=== PATIENT | male | born 1960 | race Caucasian/White ===

== ENCOUNTER 2017-11-17 08:33 | Emergency (ER) | payer OTHER ==
[2017-11-17] MEDS: DEXTROSE 5%-0.45% NACL 500 ML IV (09:30)
[2017-11-17 10:22] LABS: ANION GAP 13 (8-16); BLOOD UREA NITROGEN 41 mg/dl (7-20); CALCIUM 9.5 mg/dl (8.4-10.2); CARBON DIOXIDE 27 mmol/L (21-31); CHLORIDE 102 mmol/L (97-110); GLUCOSE 95 mg/dl (70-220); POTASSIUM 4.2 mmol/L (3.5-5.1); SODIUM 138 mmol/L (135-144)
[2017-11-17 10:28] LABS: INR 0.87; PROTIME 11.9 Sec (11.9-14.9); PT RATIO 0.9
[2017-11-17 10:29] LABS: PARTIAL THROMBOPLASTIN TIME 33.9 Sec (25.0-35.0)
[2017-11-17] MEDS: HEPARIN 1000 UNITS/ML 10 ML INJ (13:41)
[2017-11-17] MEDS: LIDOCAINE 1% (MDV) 20 ML INJ (13:42)
== END 2017-11-17 16:25 | disposition home or self-care (01) ==
LOC: E/R 08:33
DX: T82.41XA Breakdown (mechanical) of vascular dialysis catheter, initial encounter (principal); I10 Essential (primary) hypertension; J44.9 Chronic obstructive pulmonary disease, unspecified; F17.210 Nicotine dependence, cigarettes, uncomplicated; I25.10 Atherosclerotic heart disease of native coronary artery without angina pectoris; E11.9 Type 2 diabetes mellitus without complications; Y62 Failure of sterile precautions during surgical and medical care; Z79.82 Long term (current) use of aspirin; Z79.4 Long term (current) use of insulin
CPT/HCPCS: 36581; 71045; 80048; 85610; 85730; 99284-25

== ENCOUNTER 2017-11-17 18:56 | Emergency (ER) | payer OTHER ==
[2017-11-17] MEDS: LIDOCAINE 1%/EPI 30 ML INJ INJ (20:36)
== END 2017-11-17 21:00 | disposition left against medical advice (07) ==
LOC: E/R 18:56
DX: T82.838A Hemorrhage due to vascular prosthetic devices, implants and grafts, initial encounter (principal); J44.9 Chronic obstructive pulmonary disease, unspecified; I25.10 Atherosclerotic heart disease of native coronary artery without angina pectoris; I10 Essential (primary) hypertension; F17.210 Nicotine dependence, cigarettes, uncomplicated; Y82.8 Other medical devices associated with adverse incidents; Z95.1 Presence of aortocoronary bypass graft; Z79.4 Long term (current) use of insulin; Z79.01 Long term (current) use of anticoagulants; Z79.82 Long term (current) use of aspirin
CPT/HCPCS: 99282; Z7502

== ENCOUNTER 2018-04-20 04:20 | Emergency (ER) | payer SELFPAY, OTHER | END 2018-04-20 05:09 | disposition left against medical advice (07) | LOC: E/R 04:20 | DX: Z53.21 Procedure and treatment not carried out due to patient leaving prior to being seen by health care provider (principal) ==

== ENCOUNTER 2018-12-13 06:02 | Inpatient (IN) | payer OTHER ==
[2018-12-13 06:32] LABS: ADD MAN DIFF? NO
[2018-12-13] MEDS: DEXTROSE 5%-0.45% NACL 500 ML IV ×2 (06:36→10:30)
[2018-12-13] MEDS: CEFEPIME 2GM/50 ML (PMX) 50 ML IVPB (06:36)
[2018-12-13] MEDS: SODIUM CHLORIDE 0.9% 1L BAG IV* (06:36)
[2018-12-13 06:38] LABS: WHITE BLOOD COUNT 25.3 10^3/ul (4.8-10.8)
[2018-12-13 06:38] LABS: ABNORMAL IP MESSAGE 1; BASOPHIL # 0.1 10^3/ul (0.0-0.1); BASOPHILS % 0.4 % (0.0-2.0); HEMATOCRIT 33.5 % (42.0-52.0); HEMOGLOBIN 10.9 g/dl (14.0-18.0); LYMPHOCYTES # 0.4 10^3/ul (0.8-2.9); LYMPHOCYTES % 1.7 % (15.0-51.0); MEAN CORPUSCULAR HEMOGLOBIN 32.9 pg (29.0-33.0); MEAN CORPUSCULAR HGB CONC 32.5 g/dl (32.0-37.0); MEAN CORPUSCULAR VOLUME 101.2 fl (82.0-101.0); MEAN PLATELET VOLUME 11.4 fl (7.4-10.4); MONOCYTE # 0.7 10^3/ul (0.3-0.9); MONOCYTES % 2.9 % (0.0-11.0); NEUTROPHIL # 23.3 10^3/ul (1.6-7.5); NUCLEATED RED BLOOD CELLS # 0.2 10^3/ul (0.0-0.0); NUCLEATED RED BLOOD CELLS% 0.8 /100WBC (0.0-0.0); PLATELET COUNT 211 10^3/UL (140-415); POSITIVE DIFF @See below; RED BLOOD COUNT 3.31 10^6/ul (4.70-6.10); RED CELL DISTRIBUTION WIDTH 15.6 % (11.5-14.5)
[2018-12-13] MEDS: LIDOCAINE 1% (MPF) 5 ML VIAL SC (06:47)
[2018-12-13 06:48] LABS: ADD UMIC YES; UR ASCORBIC ACID NEGATIVE (NEGATIVE); UR BACTERIA FEW /HPF (NONE SEEN); UR BILIRUBIN (Dip) NEGATIVE (NEGATIVE); UR BLOOD (Dip) 2+ mg/dL (NEGATIVE); UR CLARITY CLOUDY (CLEAR); UR COLOR AMBER (YELLOW); UR GLUCOSE (Dip) 1+ mg/dL (NEGATIVE); UR KETONES (Dip) TRACE mg/dL (NEGATIVE); UR LEUKOCYTE ESTERASE (Dip) TRACE Leu/ul (NEGATIVE); UR NITRITE (Dip) NEGATIVE (NEGATIVE); UR RBC 60 /HPF (0-5); UR SPECIFIC GRAVITY (Dip) 1.024 (1.003-1.030); UR TOTAL PROTEIN (Dip) 1+ mg/dl (NEGATIVE); UR UROBILINOGEN (Dip) NEGATIVE (NEGATIVE); UR WBC 16 /HPF (0-5)
[2018-12-13 06:53] LABS: ALANINE AMINOTRANSFERASE 26 IU/L (13-69); ALBUMIN 3.4 g/dl (3.3-4.9); ALBUMIN/GLOBULIN RATIO 0.73; ALKALINE PHOSPHATASE 1500 IU/L (42-121); ANION GAP 18 (5-13); ASPARTATE AMINO TRANSFERASE 54 IU/L (15-46); BILIRUBIN,INDIRECT 0.1 mg/dl (0-1.1); BILIRUBIN,TOTAL 0.1 mg/dl (0.2-1.3); BLOOD UREA NITROGEN 29 mg/dl (7-20); CALCIUM 8.5 mg/dl (8.4-10.2); CARBON DIOXIDE 25 mmol/L (21-31); CHLORIDE 91 mmol/L (97-110); CREATININE 5.06 mg/dl (0.61-1.24); Estimated GFR 12 mL/min (>60); GLUCOSE 100 mg/dl (70-220); INR 1.11; POTASSIUM 3.8 mmol/L (3.5-5.1); PROTIME 14.4 Sec (11.9-14.9); PT RATIO 1.1; SODIUM 134 mmol/L (135-144)
[2018-12-13 06:54] LABS: PARTIAL THROMBOPLASTIN TIME 34.3 Sec (23.0-35.0)
[2018-12-13 07:04] LABS: TROPONIN-I 0.103 ng/ml (0.000-0.120)
[2018-12-13] MEDS: VANCOMYCIN 1 GM (PMX) 250 ML IVPB (07:08)
[2018-12-13] MEDS: NORepinephrine 8MG/250 ML (PMX 250 ML IV ×2 (07:30→17:16)
[2018-12-13] MEDS ORDERED: NORepinephrine 8MG/250 ML (PMX 250 ML IV (07:30)
[2018-12-13 07:31] LABS: AADO2 Arterial 146.9 mmHg (7.0-24.0); Allen Test ACCEPTAB; Arterial Base Excess 0.2 mmol/L (-3.0-3); Arterial Blood Gas Oxygen Sat 92.6 mmHG (95.0-98.0); Arterial Fraction of Oxyhgb 91.5 % (93.0-99.0); Arterial HCO3 24.2 mmol/L (22.0-26.0); Arterial MetHb 0.2 % (0.0-1.5); Arterial pCO2 36.8 mmhg (35-45); MODE NASAL CANNULA; Site Left Radial
[2018-12-13] MEDS: DEXTROSE 10% 250 ML IV ×3 (07:31→11:30)
[2018-12-13 11:12] LABS: LACTIC ACID 2.1 mmol/L (0.5-2.0)
[2018-12-13] MEDS ORDERED: ZOLPIDEM 5 MG TAB PO (12:30)
[2018-12-13] MEDS ORDERED: ACETAMINOPHEN 650MG/20.3ML CUP PO (12:30)
[2018-12-13] MEDS ORDERED: DOCUSATE SODIUM 100 MG CAP PO (12:30)
[2018-12-13] MEDS ORDERED: GLUCOSE GEL 15 GRAM TUBE BUCCAL (13:00)
[2018-12-13] MEDS ORDERED: DEXTROSE 50% 50 ML SYRINGE IV (13:00)
[2018-12-13] MEDS ORDERED: GLUCOSE GEL 15 GRAM TUBE PO ×2 (13:00)
[2018-12-13] MEDS ORDERED: GLUCAGON 1 MG INJ IM (13:00)
[2018-12-13] MEDS: DOCUSATE SODIUM 100 MG CAP PO ×2 (13:20→21:00)
[2018-12-13] MEDS: ASPIRIN (EC) 81 MG TAB PO (13:20)
[2018-12-13 13:44] LABS: HEMOGLOBIN A1C 8.7 % (0-5.9)
[2018-12-13] MEDS: HYDROmorphONE 0.5 MG/0.5 ML SYG IV ×2 (15:35→20:10)
[2018-12-13] MEDS ORDERED: HEPARIN 1000 UNITS/ML 10 ML INJ CATHETER (17:00)
[2018-12-13] MEDS ORDERED: SODIUM CHLORIDE 0.9% 1L BAG IV (17:00)
[2018-12-13] MEDS ORDERED: ALBUMIN HUMAN 25% 100 ML IV (17:00)
[2018-12-13] MEDS: CALCIUM ACETATE 667 MG CAP PO (17:35)
[2018-12-13] MEDS: FUROSEMIDE 20 MG INJ IV (18:40)
[2018-12-13] MEDS: INSULIN ASPART [NOVOLOG] 3 ML PEN SC ×2 (18:45→21:00)
[2018-12-13] MEDS: MIRTAZAPINE 15 MG TAB PO (21:00)
[2018-12-13] MEDS: INSULIN GLARGINE [LANTus] (100 UNITS/ML) SYG SC ×2 (21:00→21:30)
[2018-12-13] MEDS: TAMSULOSIN (SR) 0.4 MG CAP PO (21:00)
[2018-12-13] MEDS: ATORVASTATIN 80 MG TAB PO (21:00)
[2018-12-14] MEDS: NORepinephrine 8MG/250 ML (PMX 250 ML IV (02:31)
[2018-12-14] MEDS: HYDROCODONE/APAP (5/325) TAB PO ×2 (03:04→11:47)
[2018-12-14 05:39] LABS: ABNORMAL IP MESSAGE 1; HEMATOCRIT 32.2 % (42.0-52.0); HEMOGLOBIN 10.5 g/dl (14.0-18.0); MEAN CORPUSCULAR HEMOGLOBIN 32.5 pg (29.0-33.0); MEAN CORPUSCULAR HGB CONC 32.6 g/dl (32.0-37.0); MEAN CORPUSCULAR VOLUME 99.7 fl (82.0-101.0); MEAN PLATELET VOLUME 11.1 fl (7.4-10.4); NUCLEATED RED BLOOD CELLS% 0.3 /100WBC (0.0-0.0); PLATELET COUNT 234 10^3/UL (140-415); POSITIVE DIFF @See below; RED BLOOD COUNT 3.23 10^6/ul (4.70-6.10); RED CELL DISTRIBUTION WIDTH 15.9 % (11.5-14.5)
[2018-12-14 05:39] LABS: WHITE BLOOD COUNT 25.5 10^3/ul (4.8-10.8)
[2018-12-14 05:42] LABS: ADD MAN DIFF? YES
[2018-12-14 06:03] LABS: ANION GAP 15 (5-13); BLOOD UREA NITROGEN 36 mg/dl (7-20); CALCIUM 8.3 mg/dl (8.4-10.2); CARBON DIOXIDE 25 mmol/L (21-31); CHLORIDE 89 mmol/L (97-110); CREATININE 5.64 mg/dl (0.61-1.24); Estimated GFR 10 mL/min (>60); GLUCOSE 74 mg/dl (70-220); POTASSIUM 4.7 mmol/L (3.5-5.1); SODIUM 129 mmol/L (135-144)
[2018-12-14 07:09] LABS: ANISOCYTOSIS 3+ (0-0); LYMPHOCYTES #M 0.7 10^3/ul (0.8-2.9); LYMPHOCYTES % (M) 3 % (15-51); MONOCYTE #M 1.2 10^3/ul (0.3-0.9); MONOCYTES % (M) 5 % (0-11); PLATELET ESTIMATE NORMAL; POLYCHROMASIA 1+ (0-0); REACTIVE LYMPHOCYTES #M 0.5 10^3/ul (0.0-0.0); REACTIVE LYMPHOCYTES% (M) 2 % (0-0); SEGMENTED NEUTROPHILS (M) % 90 % (39-77); SMUDGE%M 1 % (0-0)
[2018-12-14] MEDS: INSULIN ASPART [NOVOLOG] 3 ML PEN SC ×3 (07:35→17:35)
[2018-12-14] MEDS: ASPIRIN (EC) 81 MG TAB PO (08:47)
[2018-12-14] MEDS: DOCUSATE SODIUM 100 MG CAP PO (08:48)
[2018-12-14] MEDS: CALCIUM ACETATE 667 MG CAP PO ×3 (08:48→17:37)
[2018-12-14] MEDS: DEXTROSE 50% 50 ML SYRINGE IV (08:56)
[2018-12-14] MEDS ORDERED: INFLUENZA VIRUS VACCINE 0.5 ML (DISPENSING) IM* (09:00)
[2018-12-14] MEDS ORDERED: VANCOMYCIN IV PER PHARMACY XX (11:00)
[2018-12-14] MEDS: HEPARIN 1000 UNITS/ML 10 ML INJ CATHETER (11:46)
[2018-12-14] MEDS: FERROUS SULFATE (EC) 325 MG TAB PO (11:46)
[2018-12-14] MEDS: LACTOBACILLUS RHAMNOSUS CAP PO (11:46)
[2018-12-14] MEDS: CEFEPIME 1GM/50 ML (PMX) 50 ML IVPB (11:47)
[2018-12-14 12:03] LABS: HEPATITIS B SURFACE ANTIGEN NEGATIVE (NEGATIVE)
[2018-12-14 12:20] LABS: HEPATITIS B SURFACE ANTIBODY NEGATIVE (NEGATIVE)
[2018-12-14 13:44] LABS: CREATINE KINASE 38 IU/L (23-200)
[2018-12-14 13:57] LABS: CK INDEX 10.5
[2018-12-14 14:07] LABS: CK-MB 3.99 ng/ml (0.0-2.4)
== END 2018-12-14 18:57 | disposition left against medical advice (07) | DRG 871 ==
LOC: E/R 06:02 → ICU 08:30
PROVIDERS: Family Medicine
PROC: 5A1D70Z Performance of Urinary Filtration, Intermittent, Less than 6 Hours Per Day (ICD-10-PCS; 2018-12-13)
PROC: 5A1D70Z Performance of Urinary Filtration, Intermittent, Less than 6 Hours Per Day (ICD-10-PCS; principal; 2018-12-14)
DX: A41.9 Sepsis, unspecified organism (principal); R65.21 Severe sepsis with septic shock; N18.6 End stage renal disease; E11.52 Type 2 diabetes mellitus with diabetic peripheral angiopathy with gangrene; I96 Gangrene, not elsewhere classified; L03.116 Cellulitis of left lower limb; I12.0 Hypertensive chronic kidney disease with stage 5 chronic kidney disease or end stage renal disease; E11.22 Type 2 diabetes mellitus with diabetic chronic kidney disease; E11.65 Type 2 diabetes mellitus with hyperglycemia; I25.10 Atherosclerotic heart disease of native coronary artery without angina pectoris; J44.9 Chronic obstructive pulmonary disease, unspecified; E78.5 Hyperlipidemia, unspecified; Z79.4 Long term (current) use of insulin; Z99.2 Dependence on renal dialysis; Z91.15 Patient's noncompliance with renal dialysis; Z95.1 Presence of aortocoronary bypass graft
CPT/HCPCS: 36415; 36600; 71045; 71250; 73590; 73630-LT; 73700; 80048; 80053; 81001; 82550; 82553; 82803; 82962; 83036; 83605; 84484; 85025; 85610; 85730; 86706; 86850; 86900; 86901; 87040; 87081; 87086; 87340; 90686; 90935; 93005; 93306; 93922; 96365; 96375; 99291-25